=== PATIENT | male | born 1945 | race Caucasian/White ===

== ENCOUNTER 2017-09-17 01:58 | Outpatient (CLI) | payer MEDICARE, BC | END 2017-09-17 23:59 | disposition home or self-care (01) | LOC: DIABETIC 01:58 | PROVIDERS: ATTEND Specialist | DX: E11.9 Type 2 diabetes mellitus without complications (principal) | CPT/HCPCS: G0108 ==

== ENCOUNTER 2019-04-15 12:37 | Outpatient (CLI) | payer MEDICARE, BC | END 2019-04-15 23:59 | disposition home or self-care (01) | LOC: RAD 12:37 | PROVIDERS: ATTEND Surgery | DX: Z01.810 Encounter for preprocedural cardiovascular examination (principal) | CPT/HCPCS: 93005 ==

== ENCOUNTER 2019-04-20 12:22 | Outpatient (CLI) | payer MEDICARE, BC ==
[2019-04-20 12:51] LABS: BASOPHILS # (AUTO) 0.1 X10'3 (0-0.2); BASOPHILS % (AUTO) 0.9 % (0-1); EOSINOPHILS # (AUTO) 0.3 X10'3 (0-0.9); EOSINOPHILS % (AUTO) 2.8 % (0-6); HEMATOCRIT 39.6 % (42.0-52.0); HEMOGLOBIN 13.6 g/dl (14.0-17.9); LYMPHOCYTES # (AUTO) 2.4 X10'3 (1.1-4.8); MEAN CORPUSCULAR HEMOGLOBIN 32.8 PG (27.0-31.0); MEAN CORPUSCULAR HGB CONC 34.3 g/dL (33.0-36.5); MEAN CORPUSCULAR VOLUME 95.4 FL (78-98); MEAN PLATELET VOLUME 8.5 FL (7.4-10.4); MONOCYTES # (AUTO) 0.7 X10'3 (0-0.9); NEUTROPHILS # (AUTO) 5.9 X10'3 (1.8-7.7); NEUTROPHILS % (AUTO) 63.3 % (42-75); PLATELET COUNT 253 X10'3 (140-440); RED BLOOD COUNT 4.16 X10'6 (4.70-6.10); RED CELL DISTRIBUTION WIDTH 12.2 % (11.5-14.5); WHITE BLOOD COUNT 9.3 X10'3 (4.5-11.0)
[2019-04-20 13:02] LABS: ALBUMIN 4.1 G/DL (3.4-5.0); ANION GAP 8 (8-16); BLOOD UREA NITROGEN 51 MG/DL (7-18); BUN/CREATININE RATIO 18.6 (5.4-32.0); CALCIUM 10.1 MG/DL (8.5-10.1); CHLORIDE 108 MMOL/L (99-107); CREATININE 2.74 MG/DL (0.60-1.10); GLUCOSE 127 MG/DL (70-104); POTASSIUM 5.2 MMOL/L (3.5-5.1); SODIUM 141 MMOL/L (135-145); TOTAL CARBON DIOXIDE 25.2 MMOL/L (24-32); eGFR 23 ML/MIN
== END 2019-04-20 23:59 | disposition home or self-care (01) ==
LOC: LAB 12:22
PROVIDERS: ATTEND Surgery
DX: Z01.818 Encounter for other preprocedural examination (principal)
CPT/HCPCS: 36415; 80048; 85025

== ENCOUNTER 2020-03-10 23:26 | Emergency (ER) | payer MEDICARE, BC ==
[~2020-03-10] VITALS: Ht 180.3 cm; Wt 94.0 kg
[2020-03-10] MEDS ORDERED: LIDOcaine 2% 10ml TOPICAL JELLY (Urojet) TP ONE (23:40)
[2020-03-10 23:51] LABS: BASOPHILS # (AUTO) 0.1 X10'3 (0-0.2); BASOPHILS % (AUTO) 1.3 % (0-1); EOSINOPHILS # (AUTO) 0.4 X10'3 (0-0.9); EOSINOPHILS % (AUTO) 3.7 % (0-6); HEMATOCRIT 36.7 % (42.0-52.0); HEMOGLOBIN 12.7 g/dl (14.0-17.9); LYMPHOCYTES # (AUTO) 2.5 X10'3 (1.1-4.8); MEAN CORPUSCULAR HEMOGLOBIN 33.8 PG (27.0-31.0); MEAN CORPUSCULAR HGB CONC 34.7 g/dL (33.0-36.5); MEAN CORPUSCULAR VOLUME 97.4 FL (78-98); MEAN PLATELET VOLUME 7.9 FL (7.4-10.4); MONOCYTES # (AUTO) 0.7 X10'3 (0-0.9); MONOCYTES % (AUTO) 7.7 % (2-12); NEUTROPHILS # (AUTO) 5.9 X10'3 (1.8-7.7); NEUTROPHILS % (AUTO) 61.3 % (42-75); PLATELET COUNT 258 X10'3 (140-440); RED BLOOD COUNT 3.76 X10'6 (4.70-6.10); RED CELL DISTRIBUTION WIDTH 13.1 % (11.5-14.5); WHITE BLOOD COUNT 9.7 X10'3 (4.5-11.0)
[2020-03-11 00:11] LABS: ALANINE AMINOTRANSFERASE 28 U/L (12-78); ALBUMIN 3.9 G/DL (3.4-5.0); ALBUMIN/GLOBULIN RATIO 1.2 (1.1-1.5); ALKALINE PHOSPHATASE 65 IU/L (46-116); ANION GAP 15 (8-16); ASPARTATE AMINO TRANSFERASE 15 U/L (10-37); BILIRUBIN,TOTAL 0.6 MG/DL (0.1-1.0); BLOOD UREA NITROGEN 45 MG/DL (7-18); BUN/CREATININE RATIO 13.7 (5.4-32.0); CALCIUM 9.1 MG/DL (8.5-10.1); CHLORIDE 105 MMOL/L (99-107); CREATININE 3.28 MG/DL (0.60-1.10); GLUCOSE 108 MG/DL (70-104); LIPASE 118 U/L (73-393); POTASSIUM 3.8 MMOL/L (3.5-5.1); SODIUM 141 MMOL/L (135-145); TOTAL CARBON DIOXIDE 21.3 MMOL/L (24-32); TOTAL PROTEIN 7.1 G/DL (6.4-8.2); eGFR 19 ML/MIN
[2020-03-11 00:25] VITALS: BP 135/58
[2020-03-11] MEDS ORDERED: tamsulosin 0.4mg capsule PO ONE (00:25)
[2020-03-11 00:28] LABS: CLARITY,URINE CLEAR (Clear); COLOR,URINE STRAW (Yellow); GLUCOSE, URINE NEGATIVE (Neg); KETONES,URINE NEGATIVE (Neg); LEUKOCYTE ESTERASE ,URINE NEGATIVE (Neg); NITRITES, URINE NEGATIVE (Neg); OCCULT BLOOD,URINE SMALL (Neg); PH,URINE 6.5 (4.8-8.0); PROTEIN,URINE NEGATIVE (Neg); UROBILINOGEN,URINE 0.2 E.U/dL (0.2-1.0)
[2020-03-11 00:29] LABS: UA COLLECTION TYPE FOLEY CATH
[2020-03-11 00:32] LABS: BACTERIA,URINE NONE SEEN /HPF (Neg); SQUAMOUS EPITHELIAL CELL,UR NONE SEEN /LPF (FEW); WBC,URINE NONE SEEN /HPF (0-4)
[2020-03-11] MEDS ORDERED: FLO0.4C PO (00:37)
== END 2020-03-11 01:45 | disposition home or self-care (01) ==
LOC: ER 23:27
DX: R33.9 Retention of urine, unspecified (principal); R10.2 Pelvic and perineal pain; I10 Essential (primary) hypertension; E11.9 Type 2 diabetes mellitus without complications; Z79.899 Other long term (current) drug therapy
CPT/HCPCS: 36415; 51702; 80053; 81001; 83690; 85025; 99284

== ENCOUNTER 2021-02-27 12:33 | Outpatient (CLI) | payer MEDICARE, BC ==
[2021-02-27 13:13] LABS: BASOPHILS # (AUTO) 0.1 X10'3 (0-0.2); BASOPHILS % (AUTO) 0.9 % (0-1); EOSINOPHILS # (AUTO) 0.2 X10'3 (0-0.9); EOSINOPHILS % (AUTO) 2.2 % (0-6); HEMATOCRIT 34.4 % (42.0-52.0); LYMPHOCYTES # (AUTO) 1.2 X10'3 (1.1-4.8); LYMPHOCYTES % (AUTO) 13.1 % (21-51); MEAN CORPUSCULAR HEMOGLOBIN 33.3 PG (27.0-31.0); MEAN CORPUSCULAR HGB CONC 34.7 g/dL (33.0-36.5); MEAN CORPUSCULAR VOLUME 95.9 FL (78-98); MONOCYTES # (AUTO) 0.6 X10'3 (0-0.9); MONOCYTES % (AUTO) 6.7 % (2-12); NEUTROPHILS # (AUTO) 6.9 X10'3 (1.8-7.7); NEUTROPHILS % (AUTO) 77.1 % (42-75); PLATELET COUNT 325 X10'3 (140-440); RED BLOOD COUNT 3.59 X10'6 (4.70-6.10); RED CELL DISTRIBUTION WIDTH 12.3 % (11.5-14.5)
[2021-02-27 13:17] LABS: ALBUMIN 3.6 G/DL (3.4-5.0); ANION GAP 11 (8-16); BLOOD UREA NITROGEN 30 MG/DL (7-18); BUN/CREATININE RATIO 8.4 (5.4-32.0); CALCIUM 9.1 MG/DL (8.5-10.1); CHLORIDE 106 MMOL/L (99-107); CREATININE 3.59 MG/DL (0.60-1.10); GLUCOSE 122 MG/DL (70-104); POTASSIUM 4.6 MMOL/L (3.5-5.1); SODIUM 139 MMOL/L (135-145); TOTAL CARBON DIOXIDE 22.4 MMOL/L (24-32); eGFR 17 ML/MIN
== END 2021-02-27 23:59 | disposition home or self-care (01) ==
LOC: LAB 12:33
PROVIDERS: ATTEND Surgery
DX: Z01.818 Encounter for other preprocedural examination (principal)
CPT/HCPCS: 36415; 80048; 85025

== ENCOUNTER 2021-11-14 21:59 | Emergency (ER) | payer MEDICARE, BC ==
[~2021-11-14] VITALS: Ht 177.8 cm; Wt 8.2 kg
[2021-11-14] MEDS ORDERED: LIDOcaine 1% W/epiNEPHrine 1:100,000 20ml vial SQ ONE (23:10)
[2021-11-14] MEDS ORDERED: TETanus/Pertussis (Acell)/Diphther VAC/PF (Tdap-Adult) 0.5ml syringe IMVAC ONE (23:10)
[2021-11-14] MEDS ORDERED: LIDOcaine 1% w/EPI 1:100,000 30ml vial (MDV) IJ ONE (23:15)
[2021-11-14 23:41] VITALS: BP 112/52
--- NOTE | 2021-11-15 00:10 | NUR ---
called . she will be picking up pt.
== END 2021-11-15 00:20 | disposition home or self-care (01) ==
LOC: ER 22:00
DX: S51.812A Laceration without foreign body of left forearm, initial encounter (principal); I10 Essential (primary) hypertension; E11.9 Type 2 diabetes mellitus without complications; W18.39XA Other fall on same level, initial encounter; Y92.89 Other specified places as the place of occurrence of the external cause; Y93.89 Activity, other specified; Y99.8 Other external cause status
CPT/HCPCS: 12004; 90471; 90715; 93005; 99284; J7030

== ENCOUNTER 2022-07-04 08:12 | Observation (INO) | payer MEDICARE, BC ==
[2022-07-03 13:37] LABS: BASOPHILS # (AUTO) 0.1 X10'3 (0-0.2); BASOPHILS % (AUTO) 0.9 % (0-1); EOSINOPHILS # (AUTO) 0.2 X10'3 (0-0.9); EOSINOPHILS % (AUTO) 2.4 % (0-6); HEMATOCRIT 39.7 % (42.0-52.0); HEMOGLOBIN 13.2 g/dl (14.0-17.9); LYMPHOCYTES # (AUTO) 0.9 X10'3 (1.1-4.8); LYMPHOCYTES % (AUTO) 10.1 % (21-51); MEAN CORPUSCULAR HEMOGLOBIN 31.8 PG (27.0-31.0); MEAN CORPUSCULAR HGB CONC 33.3 g/dL (33.0-36.5); MEAN CORPUSCULAR VOLUME 95.3 FL (78-98); MEAN PLATELET VOLUME 8.1 FL (7.4-10.4); MONOCYTES # (AUTO) 0.5 X10'3 (0-0.9); MONOCYTES % (AUTO) 6.3 % (2-12); NEUTROPHILS # (AUTO) 6.9 X10'3 (1.8-7.7); NEUTROPHILS % (AUTO) 80.3 % (42-75); PLATELET COUNT 246 X10'3 (140-440); RED BLOOD COUNT 4.17 X10'6 (4.70-6.10); RED CELL DISTRIBUTION WIDTH 13.4 % (11.5-14.5); WHITE BLOOD COUNT 8.6 X10'3 (4.5-11.0)
[2022-07-03 13:48] LABS: CLARITY,URINE SLIGHTLY CLOUDY (Clear); COLOR,URINE YELLOW (Yellow); GLUCOSE, URINE NEGATIVE (Neg); KETONES,URINE NEGATIVE (Neg); LEUKOCYTE ESTERASE ,URINE NEGATIVE (Neg); NITRITES, URINE NEGATIVE (Neg); OCCULT BLOOD,URINE TRACE-INTACT (Neg); PROTEIN,URINE 100 mg/dl (Neg); UROBILINOGEN,URINE 0.2 E.U/dL (0.2-1.0)
[2022-07-03 13:54] LABS: ALANINE AMINOTRANSFERASE 20 U/L (12-78); ALBUMIN/GLOBULIN RATIO 1.4 (1.1-1.5); ALKALINE PHOSPHATASE 67 IU/L (46-116); ANION GAP 7 (8-16); ASPARTATE AMINO TRANSFERASE 12 U/L (10-37); BILIRUBIN,TOTAL 0.7 MG/DL (0.1-1.0); BLOOD UREA NITROGEN 46 MG/DL (7-18); BUN/CREATININE RATIO 15.6 (10.0-20.0); CHLORIDE 107 MMOL/L (99-107); CREATININE 2.95 MG/DL (0.60-1.10); GLUCOSE 234 MG/DL (70-104); POTASSIUM 4.5 MMOL/L (3.5-5.1); SODIUM 141 MMOL/L (135-145); TOTAL CARBON DIOXIDE 26.6 MMOL/L (24-32); TOTAL PROTEIN 6.8 G/DL (6.4-8.2); eGFR 21 ML/MIN
[2022-07-03 14:05] LABS: UA COLLECTION TYPE CLN CATCH MIDSTREAM
[2022-07-03 14:31] LABS: SQUAMOUS EPITHELIAL CELL,UR MANY /LPF (FEW)
[2022-07-03 14:33] LABS: MUCUS STRANDS FEW /LPF (Neg)
[2022-07-03 14:34] LABS: HYALINE CASTS 0-3 /LPF (NEGATIVE)
[2022-07-03 14:35] LABS: FINE GRANULAR CAST 0-3 /LPF (NEGATIVE)
[2022-07-03 14:37] LABS: BACTERIA,URINE FEW /HPF (Neg); RBC,URINE 0-2 /HPF (0-2); WBC,URINE 0-4 /HPF (0-4)
[~2022-07-04] VITALS: Ht 180.3 cm; Wt 83.9 kg
[2022-07-04] VITALS (10 sets, daily range): BP systolic 135–149; BP diastolic 58–69
[~2022-07-04 08:12] MED LIST: ATOR20TA66 PO; CHOL200012 PO; DILT-94 PO; FLO0.4C PO; FURO20TA4 PO; GLIP5TAB13 PO; LOSA100T58 PO; MELA10TA2 PO; SAXA2.5T PO; SERT-433 PO; SODI650T29 PO; cefazolin 2gm/D5W 100mL 100 ML IV ONE; famotidine 20mg tablet PO ONE; normal saline 1000ml 500 ML IV SCH
[2022-07-04] MEDS ORDERED: morphine 4 MG/ML inj SYRINge IV PRN (09:00)
[2022-07-04] MEDS ORDERED: labetalol 20mg/4ml (5mg/ml) syringe IV PRN (09:00)
[2022-07-04] MEDS ORDERED: enalaprilat dihydrate 2.5mg/2ml vial IV PRN (09:00)
[2022-07-04] MEDS ORDERED: ringers solution, lacted 1,000 ML IV SCH (09:00)
[2022-07-04] MEDS ORDERED: morphine 2 MG/ML inj. syringe IV PRN (09:00)
[2022-07-04] MEDS ORDERED: fentaNYL/PF 50MCG/1 ML 2ML syringe IV PRN ×2 (09:00)
[2022-07-04] MEDS ORDERED: ondansetron/PF 4mg/2ml inj IV PRN ×2 (09:00→11:35)
[2022-07-04] MEDS ORDERED: BUPIVAcaine/PF 2.5 mg/ml (0.25%) 30ml vial ONE (10:03)
[2022-07-04] MEDS ORDERED: bacitracin 15gm ointment TP ONE (10:03)
[2022-07-04] MEDS ORDERED: dexamethasone sod phosphate 10mg/ml inj ONE (10:10)
[2022-07-04] MEDS ORDERED: desflurane 240ml liquid inh. IH ONE (10:10)
[2022-07-04] MEDS ORDERED: fentaNYL/PF 50MCG/1 ML 2ML syringe ONE (10:15)
[2022-07-04] MEDS ORDERED: midazolam 1 mg/ML 2ml injection ONE (10:15)
[2022-07-04] MEDS ORDERED: propofol inj 20 ML IV ONE (10:21)
[2022-07-04] MEDS ORDERED: glycopyrrolate 0.2mg/ml inj ONE (10:21)
[2022-07-04] MEDS ORDERED: ondansetron/PF 4mg/2ml inj ONE (10:21)
[2022-07-04] MEDS ORDERED: neostigmine methylsulfate 1 MG/ML 10ml vial ONE (10:21)
[2022-07-04] MEDS ORDERED: LIDOcaine 2% (20mg/ml) 5ml vial ONE (10:21)
[2022-07-04] MEDS ORDERED: rocuronium 10mg/ml inj IV ONE (10:21)
--- NOTE | 2022-07-04 10:51 | NUR ---
Received from OR via [facility], accompanied by Anesthesiologist DR INMAN and report given by Anesthesiolgist. PT PRESENTS WITH PIV 20G RIGHT HAND, ABD DRESSING CDI, SPO2 100% MASK 6L, LR RUNNING AT 20MLS/HR, VSS. Addendum: 07/04/22 at 1107 by Chantal Lind RN, RN Amended: Links added.
[2022-07-04] MEDS ORDERED: HYDROcodone/acetaminophen 10/325mg tab PO PRN (11:35)
[2022-07-04] MEDS ORDERED: HYDROcodone/acetaminophen 5mg/325mg tablet PO PRN (11:35)
[2022-07-04] MEDS ORDERED: naloxone 0.4 mg/ml inj IV PRN (11:35)
--- NOTE | 2022-07-04 12:21 | NUR ---
DC HOME: ALL DISCHARGE CRITERIA HAS BEEN MET. VSS, PAIN AT A TOLERABLE LEVEL, VOIDING AND ABLE TO SAFELY AMBULATE AND TRANSFER SELF. IV TAKEN OUT WITHOUT ANY COMPLICATIONS. ALL DISCHARGE INSTRUCTIONS COVERED WITH PATIENT AND ALL QUESTIONS ANSWERED. PATIENT TAKEN OUT VIA WHEELCHAIR TO PERSONAL VEHICLE WHERE FAMILY/FRIEND DROVE PATIENT HOME. Addendum: 07/04/22 at 1225 by Chantal Lind RN, RN Amended: Links added.
== END 2022-07-04 12:21 | disposition home or self-care (01) ==
LOC: PAS 08:12 → PAS IN 11:39
PROVIDERS: ADMIT Surgery; ATTEND Surgery
DX: I12.0 Hypertensive chronic kidney disease with stage 5 chronic kidney disease or end stage renal disease (principal); E11.22 Type 2 diabetes mellitus with diabetic chronic kidney disease; N18.9 Chronic kidney disease, unspecified; Z87.891 Personal history of nicotine dependence; Z87.442 Personal history of urinary calculi; Z87.441 Personal history of nephrotic syndrome; Z85.828 Personal history of other malignant neoplasm of skin; Z79.899 Other long term (current) drug therapy
CPT/HCPCS: 36415; 49422; 80053; 81001; 82948; 85025; 93005; G0378; J0690; J1100; J2250; J2405; J2704; J2710; J3010; J3490; J7030; J7040; A4215; A4618; A7000

== ENCOUNTER 2024-05-23 16:31 | Inpatient (IN) | payer MEDICARE, BC ==
[~2024-05-23] VITALS: Ht 180.3 cm; Wt 75.0 kg
[~2024-05-23 16:31] MED LIST changes: -FLO0.4C PO; -GLIP5TAB13 PO; +GLIP5TAB23 PO; +TAMS-55 PO; -cefazolin 2gm/D5W 100mL 100 ML IV ONE; -famotidine 20mg tablet PO ONE; -normal saline 1000ml 500 ML IV SCH
[2024-05-23] MEDS: normal saline 1000ML IV soln IV ONE (16:45)
[2024-05-23 17:01] LABS: BASOPHILS # (AUTO) 0.1 X10'3 (0-0.2); EOSINOPHILS # (AUTO) 0.3 X10'3 (0-0.9); EOSINOPHILS % (AUTO) 4.1 % (0-6); HEMATOCRIT 28.3 % (42.0-52.0); HEMOGLOBIN 9.6 g/dl (14.0-17.9); LYMPHOCYTES # (AUTO) 0.6 X10'3 (1.1-4.8); LYMPHOCYTES % (AUTO) 8.9 % (21-51); MEAN CORPUSCULAR HEMOGLOBIN 32.8 PG (27.0-31.0); MEAN CORPUSCULAR HGB CONC 33.9 g/dL (33.0-36.5); MEAN CORPUSCULAR VOLUME 96.9 FL (78-98); MEAN PLATELET VOLUME 7.8 FL (7.4-10.4); MONOCYTES # (AUTO) 0.8 X10'3 (0-0.9); MONOCYTES % (AUTO) 13.5 % (2-12); NEUTROPHILS # (AUTO) 4.6 X10'3 (1.8-7.7); NEUTROPHILS % (AUTO) 72.5 % (42-75); PLATELET COUNT 212 X10'3 (140-440); RED BLOOD COUNT 2.92 X10'6 (4.70-6.10); RED CELL DISTRIBUTION WIDTH 14.1 % (11.5-14.5); WHITE BLOOD COUNT 6.3 X10'3 (4.5-11.0)
[2024-05-23 17:35] LABS: ALANINE AMINOTRANSFERASE 8 U/L (12-78); ALBUMIN 2.2 G/DL (3.4-5.0); ALBUMIN/GLOBULIN RATIO 1.1 (1.1-1.5); ALKALINE PHOSPHATASE 49 IU/L (46-116); ANION GAP 13 (8-16); ASPARTATE AMINO TRANSFERASE 8 U/L (10-37); BILIRUBIN,TOTAL 0.5 MG/DL (0.1-1.0); BLOOD UREA NITROGEN 40 MG/DL (7-18); BUN/CREATININE RATIO 11.2 (10.0-20.0); CALCIUM 6.4 MG/DL (8.5-10.1); CHLORIDE 120 MMOL/L (99-107); CREATININE 3.58 MG/DL (0.60-1.10); GLUCOSE 85 MG/DL (70-104); SODIUM 146 MMOL/L (135-145); TOTAL PROTEIN 4.2 G/DL (6.4-8.2); eCRCL 18 ML/MIN; eGFR 17 ML/MIN
[2024-05-23 17:43] LABS: POTASSIUM 2.8 MMOL/L (3.5-5.1)
[2024-05-23 17:44] LABS: TOTAL CARBON DIOXIDE 13.4 MMOL/L (24-32)
[2024-05-23] MEDS ORDERED: potassium Cl 20 mEq SR tablet PO PRN ×3 (17:45→18:00)
[2024-05-23] MEDS ORDERED: magnesium sulf-water 2g/50mL 50 ML IV PRN ×2 (17:45→18:00)
[2024-05-23] MEDS ORDERED: magnesium sulf-water 4G/100mL 100 ML IV PRN ×2 (17:45→18:00)
[2024-05-23] MEDS ORDERED: potassium Cl 40MEQ/1/2NS 520ml 520 ML IV PRN ×2 (17:45→18:00)
[2024-05-23] MEDS ORDERED: acetaminophen 325mg tablet PO PRN (18:00)
[2024-05-23] MEDS ORDERED: magnesium hydroxide 30ml (MOM) UD suspension PO PRN (18:00)
[2024-05-23] MEDS: loperamide 2mg capsule PO ONE (18:00)
[2024-05-23] MEDS ORDERED: ondansetron/PF 4mg/2ml inj IV PRN (18:00)
[2024-05-23] MEDS ORDERED: normal saline 1000ml 1,000 ML IV SCH (18:00)
[2024-05-23] MEDS ORDERED: mag hydrox/Alum hydrox/simeth 30ml oral suspension PO PRN (18:00)
[2024-05-23] MEDS: potassium Cl 20 mEq SR tablet PO PRN (18:00)
[2024-05-23] MEDS: glycopyrrolate 0.2mg/ml inj IV ONE (18:00)
[2024-05-23 18:05] LABS: MAGNESIUM 1.1 MG/DL (1.5-2.4)
[2024-05-23 18:47] LABS: HEMOGLOBIN A1C 4.8 % (4.5-6.2)
[2024-05-23] MEDS: normal saline 500ml IV soln 500 ML IV SCH (18:55)
[2024-05-23] MEDS: sodium bicarbonate 1meq/ml inj 150 ML in dextrose 5%-water 1,000 ML IV SCH (19:00)
[2024-05-23 19:11] LABS: PRO BRAIN NATRIURETIC PEPTIDE 5489 PG/ML (0-450)
[2024-05-23 19:30] LABS: C-REACTIVE PROTEIN 0.48 MG/DL (0.0-0.5)
[2024-05-23] MEDS: docusate sod 100mg capsule PO SCH (20:00)
[2024-05-23] MEDS: K and/or MAG REPLACEMENT MC SCH ×2 (20:00)
[2024-05-23] MEDS: heparin, porcine 5000 units/ml vial SQ SCH (20:08)
[2024-05-23 20:22] LABS: OSMOLALITY 308 MOSM/K (280-300)
[2024-05-23] MEDS ORDERED: HYDR50TA46 PO (20:31)
[2024-05-23] MEDS ORDERED: DILT180C49 PO (20:31)
[2024-05-23] MEDS ORDERED: SODI650T29 PO (20:31)
[2024-05-23] MEDS: magnesium Cl slow-release 64mg tablet PO PRN (20:59)
[2024-05-23] MEDS: hydrALAZINE 25 MG tablet PO SCH (21:00)
[2024-05-23 21:01] LABS: BILIRUBIN,URINE NEGATIVE (Neg); CLARITY,URINE CLEAR (Clear); COLOR,URINE YELLOW (Yellow); GLUCOSE, URINE NEGATIVE (Neg); KETONES,URINE TRACE mg/dl (Neg); LEUKOCYTE ESTERASE ,URINE NEGATIVE (Neg); NITRITES, URINE POSITIVE (Neg); OCCULT BLOOD,URINE NEGATIVE (Neg); PROTEIN,URINE >=300 mg/dl (Neg); UROBILINOGEN,URINE 0.2 E.U/dL (0.2-1.0)
[2024-05-23 21:06] VITALS: BP 204/71; PULSE 82; RESP 18; TEMP 98.3; O2SAT 98
[2024-05-23 21:06] LABS: UA COLLECTION TYPE CLN CATCH MIDSTREAM
[2024-05-23 21:08] LABS: BACTERIA,URINE 2+ /HPF (Neg); MUCUS STRANDS FEW /LPF (Neg); RBC,URINE NONE SEEN /HPF (0-2); SQUAMOUS EPITHELIAL CELL,UR NONE SEEN /LPF (FEW); WBC,URINE 20-30 /HPF (0-4)
[2024-05-23 21:37] LABS: OCCULT BLOOD STOOL NEGATIVE (Neg)
[2024-05-23 22:18] VITALS: BP 167/72; PULSE 81
[2024-05-24 05:35] LABS: BASOPHILS % (AUTO) 0.7 % (0-1); EOSINOPHILS # (AUTO) 0.3 X10'3 (0-0.9); EOSINOPHILS % (AUTO) 5.2 % (0-6); HEMATOCRIT 29.7 % (42.0-52.0); HEMOGLOBIN 10.2 g/dl (14.0-17.9); LYMPHOCYTES # (AUTO) 0.7 X10'3 (1.1-4.8); LYMPHOCYTES % (AUTO) 9.8 % (21-51); MEAN CORPUSCULAR HEMOGLOBIN 32.9 PG (27.0-31.0); MEAN CORPUSCULAR HGB CONC 34.3 g/dL (33.0-36.5); MEAN CORPUSCULAR VOLUME 95.9 FL (78-98); MEAN PLATELET VOLUME 8.5 FL (7.4-10.4); MONOCYTES # (AUTO) 0.8 X10'3 (0-0.9); MONOCYTES % (AUTO) 12.4 % (2-12); NEUTROPHILS # (AUTO) 4.8 X10'3 (1.8-7.7); NEUTROPHILS % (AUTO) 71.9 % (42-75); PLATELET COUNT 226 X10'3 (140-440); WHITE BLOOD COUNT 6.7 X10'3 (4.5-11.0)
[2024-05-24 06:00] VITALS: BP 150/54; PULSE 72; RESP 16; TEMP 98.3; O2SAT 97
[2024-05-24 06:01] LABS: ALANINE AMINOTRANSFERASE 13 U/L (12-78); ALBUMIN 2.2 G/DL (3.4-5.0); ALBUMIN/GLOBULIN RATIO 1.1 (1.1-1.5); ALKALINE PHOSPHATASE 51 IU/L (46-116); ANION GAP 10 (8-16); ASPARTATE AMINO TRANSFERASE 9 U/L (10-37); BILIRUBIN,TOTAL 0.4 MG/DL (0.1-1.0); BLOOD UREA NITROGEN 45 MG/DL (7-18); BUN/CREATININE RATIO 10.6 (10.0-20.0); CALCIUM 7.7 MG/DL (8.5-10.1); CHLORIDE 116 MMOL/L (99-107); CHOL/HDL RATIO 1.9 (0.00-4.99); CHOLESTEROL 99 MG/DL (0-200); CREATININE 4.26 MG/DL (0.60-1.10); GLUCOSE 99 MG/DL (70-104); HDL CHOLESTEROL 53 MG/DL (35-60); MAGNESIUM 1.4 MG/DL (1.5-2.4); POTASSIUM 5.3 MMOL/L (3.5-5.1); SODIUM 144 MMOL/L (135-145); TOTAL CARBON DIOXIDE 18.4 MMOL/L (24-32); TOTAL PROTEIN 4.2 G/DL (6.4-8.2); TRIGLYCERIDES 95 MG/DL (20-135); eCRCL 15 ML/MIN; eGFR 14 ML/MIN
[2024-05-24 06:26] LABS: LDL CHOLESTEROL 28 MG/DL (50-100)
[2024-05-24 07:45] VITALS: RESP 16; O2SAT 97
[2024-05-24] MEDS: tamsulosin 0.4mg capsule PO SCH (08:28)
[2024-05-24] MEDS: atorvastatin 20mg tablet PO SCH (08:28)
[2024-05-24] MEDS: sertraline 50mg tablet PO SCH (08:29)
[2024-05-24] MEDS: diltiazem CD 180mg cap (once-daily) PO SCH (08:29)
[2024-05-24] MEDS: losartan 50mg tablet PO SCH (08:31)
[2024-05-24] MEDS: cefepime 1GM in D5W 50mL 50 ML IV SCH (09:40)
[2024-05-24 10:00] VITALS: BP 131/49; PULSE 94; RESP 23; TEMP 98.4; O2SAT 98
[2024-05-24 10:39] LABS: C DIFF SPECIMEN=DIARRHEA? ACCEPTABLE; C DIFFICILE TOXINS A&B NEGATIVE (Neg)
[2024-05-24] MEDS ORDERED: vancomycin 250MG/10ML UD oral solution 10ML BOTTLE PO SCH (12:30)
[2024-05-24] MEDS: magnesium Cl slow-release 64mg tablet PO PRN (13:35)
[2024-05-24] MEDS: vancomycin 125 MG/5 ML UD oral SOLN.RECON 5mL oral syringe (FIRVANQ) PO SCH (13:35)
[2024-05-24] MEDS ORDERED: cetirizine 10mg tablet PO SCH (14:50)
[2024-05-24] MEDS: FOSFOMYCIN TROMETHAMINE 3 GM PACKET PO ONE (16:24)
[2024-05-24 18:00] VITALS: BP 116/47; PULSE 82; RESP 20; TEMP 98.7; O2SAT 98
[2024-05-24 20:00] VITALS: RESP 20; O2SAT 98
[2024-05-24 22:00] VITALS: BP 116/45; PULSE 83; RESP 16; TEMP 98; O2SAT 97
[2024-05-25 06:00] VITALS: BP 132/52; PULSE 87; RESP 13; TEMP 98; O2SAT 98
[2024-05-25 07:04] LABS: BASOPHILS % (AUTO) 0.8 % (0-1); EOSINOPHILS # (AUTO) 0.2 X10'3 (0-0.9); EOSINOPHILS % (AUTO) 5.3 % (0-6); HEMATOCRIT 26.4 % (42.0-52.0); LYMPHOCYTES # (AUTO) 0.9 X10'3 (1.1-4.8); LYMPHOCYTES % (AUTO) 19.7 % (21-51); MEAN CORPUSCULAR HEMOGLOBIN 32.4 PG (27.0-31.0); MEAN CORPUSCULAR HGB CONC 34.2 g/dL (33.0-36.5); MEAN CORPUSCULAR VOLUME 94.8 FL (78-98); MEAN PLATELET VOLUME 8.1 FL (7.4-10.4); MONOCYTES # (AUTO) 0.8 X10'3 (0-0.9); MONOCYTES % (AUTO) 16.2 % (2-12); NEUTROPHILS # (AUTO) 2.7 X10'3 (1.8-7.7); PLATELET COUNT 200 X10'3 (140-440); RED BLOOD COUNT 2.78 X10'6 (4.70-6.10); RED CELL DISTRIBUTION WIDTH 13.7 % (11.5-14.5); WHITE BLOOD COUNT 4.7 X10'3 (4.5-11.0)
[2024-05-25 07:40] LABS: ALANINE AMINOTRANSFERASE 10 U/L (12-78); ALBUMIN 1.9 G/DL (3.4-5.0); ALBUMIN/GLOBULIN RATIO 0.9 (1.1-1.5); ALKALINE PHOSPHATASE 44 IU/L (46-116); ANION GAP 5 (8-16); ASPARTATE AMINO TRANSFERASE 9 U/L (10-37); BILIRUBIN,TOTAL 0.4 MG/DL (0.1-1.0); BLOOD UREA NITROGEN 40 MG/DL (7-18); BUN/CREATININE RATIO 9.8 (10.0-20.0); CALCIUM 7.4 MG/DL (8.5-10.1); CHLORIDE 111 MMOL/L (99-107); CREATININE 4.07 MG/DL (0.60-1.10); GLUCOSE 134 MG/DL (70-104); POTASSIUM 3.6 MMOL/L (3.5-5.1); SODIUM 141 MMOL/L (135-145); eCRCL 16 ML/MIN; eGFR 14 ML/MIN
[2024-05-25 09:10] LABS: TOTAL CELLS COUNTED 100
[2024-05-25 09:11] LABS: PLATELET ESTIMATE NORMAL
[2024-05-25] MEDS ORDERED: diltiazem-NS 100mg/100ml 100 ML IV SCH (09:15)
[2024-05-25 10:00] VITALS: BP 122/54; PULSE 89; RESP 13; TEMP 98.3; O2SAT 97
[2024-05-25 11:03] LABS: PHOS, URINE RANDOM 25.7 MG/DL
[2024-05-25 11:23] LABS: TOTAL PROTEIN 24HR,URINE 1229.5 MG/24HR (28-141)
[2024-05-25 11:42] LABS: C DIFF ANTIGEN SEE COMMENTS (NEGATIVE)
[2024-05-25] MEDS: normal saline 1000ml 1,000 ML IV SCH (12:31)
[2024-05-25 12:55] LABS: MAGNESIUM 1.3 MG/DL (1.5-2.4)
[2024-05-25 18:00] VITALS: BP 132/53; PULSE 96; RESP 16; TEMP 98.6; O2SAT 98
[2024-05-25 20:00] VITALS: RESP 16; O2SAT 96
[2024-05-25] MEDS: apixaban 5mg tablet PO SCH (20:03)
[2024-05-25 22:00] VITALS: BP 127/52; PULSE 85; RESP 18; TEMP 98; O2SAT 96
[2024-05-26 06:00] VITALS: BP 141/51; PULSE 82; RESP 18; TEMP 98.7; O2SAT 97
[2024-05-26 06:30] LABS: BASOPHILS # (AUTO) 0.1 X10'3 (0-0.2); EOSINOPHILS # (AUTO) 0.3 X10'3 (0-0.9); HEMATOCRIT 26.6 % (42.0-52.0); LYMPHOCYTES # (AUTO) 0.9 X10'3 (1.1-4.8); LYMPHOCYTES % (AUTO) 14.5 % (21-51); MEAN CORPUSCULAR HGB CONC 33.7 g/dL (33.0-36.5); MEAN CORPUSCULAR VOLUME 95.1 FL (78-98); MEAN PLATELET VOLUME 8.3 FL (7.4-10.4); MONOCYTES # (AUTO) 0.6 X10'3 (0-0.9); MONOCYTES % (AUTO) 10.6 % (2-12); NEUTROPHILS # (AUTO) 4.1 X10'3 (1.8-7.7); NEUTROPHILS % (AUTO) 68.9 % (42-75); PLATELET COUNT 200 X10'3 (140-440); RED CELL DISTRIBUTION WIDTH 13.9 % (11.5-14.5); WHITE BLOOD COUNT 5.9 X10'3 (4.5-11.0)
[2024-05-26 06:52] LABS: ALANINE AMINOTRANSFERASE 13 U/L (12-78); ALBUMIN 1.8 G/DL (3.4-5.0); ALBUMIN/GLOBULIN RATIO 0.9 (1.1-1.5); ALKALINE PHOSPHATASE 43 IU/L (46-116); ANION GAP 7 (8-16); ASPARTATE AMINO TRANSFERASE 9 U/L (10-37); BILIRUBIN,TOTAL 0.5 MG/DL (0.1-1.0); BLOOD UREA NITROGEN 36 MG/DL (7-18); BUN/CREATININE RATIO 9.4 (10.0-20.0); CALCIUM 7.1 MG/DL (8.5-10.1); CHLORIDE 111 MMOL/L (99-107); CREATININE 3.85 MG/DL (0.60-1.10); GLUCOSE 88 MG/DL (70-104); POTASSIUM 3.4 MMOL/L (3.5-5.1); SODIUM 144 MMOL/L (135-145); TOTAL CARBON DIOXIDE 26.5 MMOL/L (24-32); TOTAL PROTEIN 3.8 G/DL (6.4-8.2); eCRCL 17 ML/MIN; eGFR 15 ML/MIN
[2024-05-26 10:00] VITALS: BP 122/62; PULSE 82; RESP 18; TEMP 98.7; O2SAT 97
[2024-05-26] MEDS ORDERED: APIX5TAB3 PO (11:48)
[2024-05-26] MEDS ORDERED: VANC25SO PO (11:48)
== END 2024-05-26 13:50 | disposition home or self-care (01) | DRG 371 ==
LOC: ER 16:32 → ED HOLD 18:02 → ORTHO 4S 20:51
PROVIDERS: ADMIT Family Medicine; ATTEND Family Medicine
DX: A04.72 Enterocolitis due to Clostridium difficile, not specified as recurrent (principal); N17.0 Acute kidney failure with tubular necrosis; N18.6 End stage renal disease; E87.0 Hyperosmolality and hypernatremia; E87.20 Acidosis, unspecified; I12.0 Hypertensive chronic kidney disease with stage 5 chronic kidney disease or end stage renal disease; N39.0 Urinary tract infection, site not specified; E86.0 Dehydration; E87.6 Hypokalemia; E11.22 Type 2 diabetes mellitus with diabetic chronic kidney disease; E78.5 Hyperlipidemia, unspecified; F17.210 Nicotine dependence, cigarettes, uncomplicated; K82.8 Other specified diseases of gallbladder; N20.0 Calculus of kidney; N40.0 Benign prostatic hyperplasia without lower urinary tract symptoms; E86.9 Volume depletion, unspecified; B96.20 Unspecified Escherichia coli [E. coli] as the cause of diseases classified elsewhere; E87.5 Hyperkalemia; F32.A Depression, unspecified; E83.42 Hypomagnesemia; N25.89 Other disorders resulting from impaired renal tubular function; N28.1 Cyst of kidney, acquired; E86.1 Hypovolemia; E87.8 Other disorders of electrolyte and fluid balance, not elsewhere classified; Z88.8 Allergy status to other drugs, medicaments and biological substances
CPT/HCPCS: 36415; 71045; 74176; 80053; 80061; 81001; 82272; 82570; 83036; 83605; 83735; 83880; 83930; 83935; 84105; 84133; 84145; 84156; 84300; 85007; 85025; 85651; 86140; 87045; 87046; 87077; 87081; 87088; 87186; 87207; 87324; 87449; 87493; 89055; 93005; 93306; 96361; 96374; 97116; 97161; 99285; A6258; G0378; J0692; J1644; J3490; J7030; J7040; J7070